=== PATIENT | male | born 1945 | race Two or more races ===

== ENCOUNTER 2018-03-21 18:30 | Inpatient (IN) | payer MEDICARE ==
[~2018-03-21] VITALS: Ht 154.9 cm; Wt 62.6 kg
[2018-03-21] MEDS ORDERED: METHYLPREDNISOLONE SOD SUCC 125 MG/2 ML VIAL IV STA (18:37)
[2018-03-21] MEDS ORDERED: IPRATROPIUM BROMIDE (0.02%) 0.5MG/2.5ML NEB HHN STA (18:37)
[2018-03-21] MEDS ORDERED: ALBUTEROL (0.083%) 2.5MG/3ML NEB HHN STA (18:37)
[2018-03-21] MEDS ORDERED: NITROGLYCERIN OINT 1GM/INCH UDPKT TD ONE (18:45)
[2018-03-21 19:37] LABS: BG BILEVEL POS AIRWAY PRESSURE 15/5; BG CARBOXYHEMOGLOBIN 0.5 % (0.5-1.5); BG FRACTION INSPIRED OXYGEN 75; BG HCO3 ACT 21.7 mmol/L (22.0-26.0); BG OXYHEMOGLOBIN 98.5 % (94.0-97.0); BG PCO2 33.3 mmHg (35.0-45.0); BG PH 7.431 (7.350-7.450); BG PO2 190.9 mmHg (75.0-100.0); BG SAMPLE SITE LEFT RADIAL; BG VENT MODE MASK - BIPAP; BG VENT RATE 12 set
[2018-03-21 20:10] LABS: HEMATOCRIT. 35.5 % (42.0-52.0); HEMOGLOBIN. 11.8 g/dL (14.0-18.0); MEAN CORPUSCULAR HEMOGLOBIN 29.9 pg (28.0-32.0); MEAN CORPUSCULAR VOLUME 89.9 fL (80.0-94.0); PLATELET 216 x1000/uL (130-400); RED BLOOD CELL COUNT 3.95 mill/uL (4.7-6.1); RED CELL DISTRIBUTION WIDTH 15.2 % (11.6-14.6)
[2018-03-21 20:13] LABS: CHLORIDE 101 mEq/L (98-107); INR 1.1; PARTIAL THROMBOPLASTIN TIME 25.1 sec (23.4-31.0); PROTHROMBIN TIME 10.7 sec (9.1-11.1)
[2018-03-21] MEDS ORDERED: LEVOFLOXACIN 500MG PREMIX 100 ML IV ONE (20:15)
[2018-03-21] MEDS ORDERED: VANCOMYCIN 1 G PREMIX 200 ML IV SCH (20:15)
[2018-03-21 20:18] LABS: PHOSPHORUS 5.9 mg/dL (2.5-4.9)
[2018-03-21 20:24] LABS: PLATELET ESTIMATE NORMAL
[2018-03-21] MEDS ORDERED: ASPIRIN 81MG TABLET PO ONE (21:15)
[2018-03-21] MEDS ORDERED: ENOXAPARIN 80MG/0.8ML SYR SUBCUT ONE (21:15)
[2018-03-22] VITALS (14 sets, daily range): BP systolic 132–171; BP diastolic 51–84
[2018-03-22] MEDS ORDERED: DEXTROSE 50% WATER 50ML SYRINGE IV PRN ×2 (02:00→22:15)
[2018-03-22] MEDS ORDERED: CLONIDINE 0.1MG TABLET PO PRN (02:00)
[2018-03-22] MEDS ORDERED: HEPARIN 25,000 UNITS PREMIX 500 ML IV SCH (02:30)
[2018-03-22] MEDS ORDERED: HEPARIN BOLUS PRN aPTT <30 IV (03:00)
[2018-03-22] MEDS ORDERED: HEPARIN BOLUS PRN aPTT 30-44 IV (03:00)
[2018-03-22] MEDS ORDERED: HEPARIN 60 UNITS/KG BOLUS IV NR (03:00)
[2018-03-22] MEDS: HEPARIN 25,000 UNITS PREMIX 500 ML IV SCH ×2 (03:45→18:37)
[2018-03-22] MEDS: BLOOD SUGAR DIAGNOSTIC STRIP TEST SCH ×4 (06:06→21:47)
[2018-03-22 08:40] LABS: CLARITY URINE CLOUDY (CLEAR); COLOR URINE YELLOW (YELLOW); KETONES URINE NEGATIVE (NEGATIVE); LEUKOCYTE ESTERASE URINE NEGATIVE (NEGATIVE); NITRITE URINE NEGATIVE (NEGATIVE); OCCULT BLOOD URINE TRACE (NEGATIVE); PROTEIN URINE 2+ (NEGATIVE); SPECIFIC GRAVITY URINE 1.015 (1.005-1.030); UROBILINOGEN URINE 0.2 E.U./dL (0.2-1.0)
[2018-03-22] MEDS: INSULIN LISPRO 100 UNITS/ML SUBCUT SCH ×3 (08:41→16:13)
[2018-03-22] MEDS ORDERED: ONDANSETRON HCL 4MG/2ML INJ IV PRN (11:15)
[2018-03-22] MEDS ORDERED: ENOXAPARIN 40MG/0.4ML SYR SUBCUT SCH (11:15)
[2018-03-22] MEDS ORDERED: IPRATROPIUM/ALBUTEROL 0.5-3(2.5)MG/3ML NEB INH PRN (11:15)
[2018-03-22 11:51] LABS: HEPATITIS B SURFACE ANTIGEN NEGATIVE
[2018-03-22 11:53] LABS: T4 FREE 1.18 ng/dL (0.76-1.46)
[2018-03-22 12:19] LABS: HEPATITIS B CORE AB IGM NEGATIVE
[2018-03-22 12:20] LABS: HEPATITIS A AB IGM NEGATIVE (NEGATIVE)
[2018-03-22] MEDS: CLOPIDOGREL 75MG TABLET PO SCH (16:01)
[2018-03-22] MEDS: ASPIRIN 81MG TABLET PO SCH (16:01)
[2018-03-22 16:31] LABS: CREATINE KINASE MB FRACTION 21.7 ng/mL (0.5-3.6)
[2018-03-22] MEDS ORDERED: INSULIN LISPRO 100 UNITS/ML SUBCUT SCH ×2 (22:19→22:30)
[2018-03-22] MEDS: ENOXAPARIN 80MG/0.8ML SYR SUBCUT SCH (22:34)
[2018-03-22 23:53] LABS: CREATINE KINASE MB FRACTION 15.4 ng/mL (0.5-3.6)
[2018-03-22] MEDS: INSULIN GLARGINE UD 100 UNITS/ML SYR SUBCUT SCH (23:55)
[2018-03-23] VITALS (12 sets, daily range): BP systolic 93–175; BP diastolic 40–99
[2018-03-23] MEDS: CLONIDINE 0.1MG TABLET PO PRN ×2 (02:02→08:14)
[2018-03-23] MEDS: BLOOD SUGAR DIAGNOSTIC STRIP TEST SCH ×4 (06:15→22:00)
[2018-03-23 06:22] LABS: BASOPHILS % 0.3 % (0.0-2.0); EOSINOPHILS % 0.1 % (0.0-5.0); HEMATOCRIT. 29.4 % (42.0-52.0); LYMPHOCYTES % 9.2 % (20.0-50.0); MEAN CORPUSCULAR HEMOGLOBIN 30.7 pg (28.0-32.0); MEAN CORPUSCULAR VOLUME 89.9 fL (80.0-94.0); MEAN PLATELET VOLUME 9.9 fl (7.4-10.4); MONOCYTES % 12.4 % (2.0-8.0); PLATELET 194 x1000/uL (130-400); RED BLOOD CELL COUNT 3.27 mill/uL (4.7-6.1)
[2018-03-23 06:44] LABS: CREATINE KINASE MB FRACTION 17.3 ng/mL (0.5-3.6)
[2018-03-23] MEDS ORDERED: INSULIN LISPRO 100 UNITS/ML SUBCUT SCH (07:20)
[2018-03-23] MEDS: INSULIN LISPRO 100 UNITS/ML SUBCUT SCH ×4 (07:20→21:00)
[2018-03-23] MEDS: CLOPIDOGREL 75MG TABLET PO SCH (08:14)
[2018-03-23] MEDS: ASPIRIN 81MG TABLET PO SCH (08:14)
[2018-03-23] MEDS ORDERED: LIDOCAINE HCL 1% 10 MG/ML 10ML VIAL ONE (08:42)
[2018-03-23 12:09] LABS: T4 FREE 1.3 ng/dL (0.76-1.46)
[2018-03-23 13:49] LABS: CREATINE KINASE MB FRACTION 17.6 ng/mL (0.5-3.6)
[2018-03-23] MEDS ORDERED: IOHEXOL-350 100 ML BOTTLE ONE (14:57)
[2018-03-23] MEDS ORDERED: LACTULOSE 20G/30ML UDC PO NR (16:00)
[2018-03-23] MEDS: PANTOPRAZOLE SODIUM 40 MG/VIAL IV SCH (17:05)
[2018-03-23] MEDS ORDERED: IPRATROPIUM/ALBUTEROL 0.5-3(2.5)MG/3ML NEB HHN PRN (17:45)
[2018-03-23] MEDS: IPRATROPIUM/ALBUTEROL 0.5-3(2.5)MG/3ML NEB HHN SCH ×2 (17:46→20:52)
[2018-03-23] MEDS: LEVOFLOXACIN 250MG PREMIX 50 ML IV SCH (21:44)
[2018-03-23] MEDS: ENOXAPARIN 80MG/0.8ML SYR SUBCUT SCH (21:59)
[2018-03-23] MEDS ORDERED: INSULIN GLARGINE UD 100 UNITS/ML SYR SUBCUT SCH (22:00)
[2018-03-23] MEDS: INSULIN GLARGINE UD 100 UNITS/ML SYR SUBCUT SCH (22:17)
[2018-03-24] VITALS (28 sets, daily range): BP systolic 96–154; BP diastolic 24–96
[2018-03-24] MEDS: IPRATROPIUM/ALBUTEROL 0.5-3(2.5)MG/3ML NEB HHN SCH ×3 (00:17→20:45)
[2018-03-24 00:34] LABS: CREATINE KINASE MB FRACTION 35.7 ng/mL (0.5-3.6)
[2018-03-24] MEDS: BLOOD SUGAR DIAGNOSTIC STRIP TEST SCH ×4 (06:53→21:11)
[2018-03-24] MEDS: INSULIN LISPRO 100 UNITS/ML SUBCUT SCH ×4 (06:56→22:31)
[2018-03-24 07:12] LABS: HEMATOCRIT. 26.7 % (42.0-52.0); MEAN CORPUSCULAR HEMOGLOBIN 30.6 pg (28.0-32.0); MEAN CORPUSCULAR VOLUME 90.2 fL (80.0-94.0); MEAN PLATELET VOLUME 10.2 fl (7.4-10.4); PLATELET 183 x1000/uL (130-400); RED BLOOD CELL COUNT 2.96 mill/uL (4.7-6.1); RED CELL DISTRIBUTION WIDTH 14.9 % (11.6-14.6)
[2018-03-24 07:30] LABS: CREATINE KINASE MB FRACTION 54.6 ng/mL (0.5-3.6)
[2018-03-24] MEDS ORDERED: NICARDIPINE 100MCG/ML 10ML VIAL (CATH LAB) IV ONE (08:00)
[2018-03-24] MEDS ORDERED: NITROGLYCERIN 50MCG/ML 10ML VIAL (CATH LAB) IV ONE (08:00)
[2018-03-24] MEDS ORDERED: LIDOCAINE HCL 1% 10 MG/ML 10ML VIAL ONE (08:00)
[2018-03-24] MEDS ORDERED: IODIXANOL 320MG/ML 100 ML BOTTLE IV ONE (08:00)
[2018-03-24] MEDS ORDERED: HYDRALAZINE 20MG/ML VIAL ONE (08:47)
[2018-03-24] MEDS ORDERED: NITROGLYCERIN 0.4MG TABLET SL SL ONE (08:47)
[2018-03-24 09:11] LABS: PLATELET ESTIMATE NORMAL
[2018-03-24] MEDS ORDERED: NITROGLYCERIN 50MG PREMIX 250ML IV ONE (09:19)
[2018-03-24] MEDS ORDERED: ATROPINE SULFATE 1MG/10ML SYR IV PRN (09:30)
[2018-03-24] MEDS ORDERED: ACETAMINOPHEN 325MG TABLET PO PRN (09:30)
[2018-03-24] MEDS: PANTOPRAZOLE SODIUM 40 MG/VIAL IV SCH (11:16)
[2018-03-24] MEDS: MORPHINE SULFATE 4 MG/ML CPJ (NOT FOR IM USE) IV PRN (11:16)
[2018-03-24] MEDS: ASPIRIN 81MG TABLET PO SCH (11:17)
[2018-03-24 15:59] LABS: BG BASE EXCESS 2.4 mmol/L (-2.0-2.0); BG CARBOXYHEMOGLOBIN 0.2 % (0.5-1.5); BG DEOXYHEMOGLOBIN 7.9 % (0.0-5.0); BG FRACTION INSPIRED OXYGEN 36; BG HCO3 ACT 25.7 mmol/L (22.0-26.0); BG METHEMOGLOBIN 0.3 % (0.0-1.5); BG OXYGEN SATURATION 92.1 % (92.0-98.5); BG OXYHEMOGLOBIN 91.6 % (94.0-97.0); BG PCO2 35.1 mmHg (35.0-45.0); BG PH 7.483 (7.350-7.450); BG PO2 65.7 mmHg (75.0-100.0); BG SAMPLE SITE LEFT BRACHIAL; BG TOTAL HEMOGLOBIN 10.6 g/dL (12.0-18.0); BG VENT MODE NASAL CANNULA
[2018-03-24] MEDS: [UNRECOGNIZED DRUG - OTHER] SUBCUT SCH (16:02)
[2018-03-24] MEDS: INSULIN GLARGINE UD 100 UNITS/ML SYR SUBCUT SCH (22:32)
[2018-03-25] VITALS (41 sets, daily range): BP systolic 76–180; BP diastolic 23–121
[2018-03-25] MEDS: IPRATROPIUM/ALBUTEROL 0.5-3(2.5)MG/3ML NEB HHN SCH ×6 (00:58→20:49)
[2018-03-25 05:45] LABS: BASOPHILS % 0.3 % (0.0-2.0); EOSINOPHILS % 0.6 % (0.0-5.0); HEMATOCRIT. 26.7 % (42.0-52.0); LYMPHOCYTES % 13.5 % (20.0-50.0); MEAN CORPUSCULAR HEMOGLOBIN 30.3 pg (28.0-32.0); MEAN CORPUSCULAR VOLUME 90.2 fL (80.0-94.0); MONOCYTES % 14.1 % (2.0-8.0); NEUTROPHILS % 71.5 % (40.0-76.0); PLATELET 159 x1000/uL (130-400); RED BLOOD CELL COUNT 2.96 mill/uL (4.7-6.1); RED CELL DISTRIBUTION WIDTH 15.1 % (11.6-14.6)
[2018-03-25] MEDS: BLOOD SUGAR DIAGNOSTIC STRIP TEST SCH ×4 (07:54→21:36)
[2018-03-25] MEDS: PANTOPRAZOLE SODIUM 40 MG/VIAL IV SCH (09:02)
[2018-03-25] MEDS: ASPIRIN 81MG TABLET PO SCH (09:03)
[2018-03-25] MEDS: INSULIN LISPRO 100 UNITS/ML SUBCUT SCH ×4 (09:05→21:39)
[2018-03-25] MEDS ORDERED: NITROGLYCERIN 50MG PREMIX 250 ML IV PRN (15:15)
[2018-03-25] MEDS: [UNRECOGNIZED DRUG - OTHER] SUBCUT SCH (16:48)
[2018-03-25] MEDS: LEVOFLOXACIN 250MG PREMIX 50 ML IV SCH (20:35)
[2018-03-25] MEDS: INSULIN GLARGINE UD 100 UNITS/ML SYR SUBCUT SCH (21:41)
[2018-03-26] VITALS (29 sets, daily range): BP systolic 74–189; BP diastolic 18–106
[2018-03-26] MEDS: IPRATROPIUM/ALBUTEROL 0.5-3(2.5)MG/3ML NEB HHN SCH ×5 (00:36→20:46)
[2018-03-26] MEDS: BLOOD SUGAR DIAGNOSTIC STRIP TEST SCH ×4 (07:50→22:00)
[2018-03-26] MEDS: INSULIN LISPRO 100 UNITS/ML SUBCUT SCH ×4 (08:20→22:12)
[2018-03-26 09:37] LABS: BASOPHILS % 0.4 % (0.0-2.0); EOSINOPHILS % 2.6 % (0.0-5.0); HEMATOCRIT. 36.7 % (42.0-52.0); HEMOGLOBIN. 12.4 g/dL (14.0-18.0); LYMPHOCYTES % 8.3 % (20.0-50.0); MEAN CORPUSCULAR HEMOGLOBIN 30.7 pg (28.0-32.0); MEAN CORPUSCULAR VOLUME 90.8 fL (80.0-94.0); MEAN PLATELET VOLUME 9.9 fl (7.4-10.4); MONOCYTES % 12.4 % (2.0-8.0); NEUTROPHILS % 76.3 % (40.0-76.0); PLATELET 164 x1000/uL (130-400); RED BLOOD CELL COUNT 4.04 mill/uL (4.7-6.1)
[2018-03-26 09:43] LABS: PHOSPHORUS 5.7 mg/dL (2.5-4.9)
[2018-03-26] MEDS: CLONIDINE 0.1MG TABLET PO PRN (09:45)
[2018-03-26] MEDS: PANTOPRAZOLE SODIUM 40 MG/VIAL IV SCH (09:46)
[2018-03-26] MEDS: HYDRALAZINE HCL 50MG TABLET PO SCH ×3 (10:00→18:00)
[2018-03-26] MEDS: ASPIRIN 81MG TABLET PO SCH (13:06)
[2018-03-26] MEDS ORDERED: ALBUMIN HUMAN 25GM/100ML (25%) IV PRN (16:30)
[2018-03-26] MEDS ORDERED: HEPARIN 25,000 UNITS PREMIX 500 ML IV SCH (16:45)
[2018-03-26] MEDS ORDERED: NITROGLYCERIN 0.4MG TABLET SL SL PRN (16:45)
[2018-03-26] MEDS ORDERED: ACETAMINOPHEN 325MG TABLET PO PRN (16:45)
[2018-03-26 17:57] LABS: PARTIAL THROMBOPLASTIN TIME 28.9 sec (23.4-31.0); PROTHROMBIN TIME 10.4 sec (9.1-11.1)
[2018-03-26] MEDS ORDERED: HEPARIN 5000 UNITS/ML VIAL IV NR (18:30)
[2018-03-26] MEDS ORDERED: HEPARIN 25,000 UNITS PREMIX 500 ML IV PRN (18:30)
[2018-03-26 20:51] LABS: PLT FUNCT COLLAGEN/EPINEPHRINE > 300 CT(SEC) (76-176)
[2018-03-26 20:52] LABS: PTLFUNC COLLAGEN/ADP 180 CT(SEC) (60-115)
[2018-03-26] MEDS ORDERED: ASCORBIC ACID 500 MG TABLET PO SCH (21:00)
[2018-03-26] MEDS ORDERED: DOCUSATE SODIUM 100MG CAPSULE PO SCH (21:00)
[2018-03-26] MEDS ORDERED: CHLORHEXIDINE GLUCONATE 4% EXTERNAL USE TOP SCH (21:00)
[2018-03-26] MEDS ORDERED: BISACODYL 10MG SUPP PR PRN (21:00)
[2018-03-26] MEDS: ALLOPURINOL 300 MG TABLET PO SCH (21:30)
[2018-03-26] MEDS: INSULIN GLARGINE UD 100 UNITS/ML SYR SUBCUT SCH (22:13)
[2018-03-26] MEDS ORDERED: HEPARIN 5000 UNITS/ML VIAL IV PRN ×2 (23:00)
[2018-03-26] MEDS: MORPHINE SULFATE 4 MG/ML CPJ (NOT FOR IM USE) IV PRN (23:50)
[2018-03-27] VITALS (54 sets, daily range): BP systolic 108–171; BP diastolic 21–107
[2018-03-27] MEDS: IPRATROPIUM/ALBUTEROL 0.5-3(2.5)MG/3ML NEB HHN SCH ×6 (00:38→20:45)
[2018-03-27] MEDS: HYDRALAZINE HCL 50MG TABLET PO SCH ×2 (02:00→04:30)
[2018-03-27] MEDS ORDERED: CHLORHEXIDINE GLUCONATE 4% EXTERNAL USE TOP SCH (04:00)
[2018-03-27] MEDS: ALLOPURINOL 300 MG TABLET PO SCH (04:30)
[2018-03-27] MEDS ORDERED: FENTANYL CITRATE/PF 50MCG/ML 5ML VIAL ONE (05:42)
[2018-03-27] MEDS ORDERED: MIDAZOLAM HCL 5 MG/ML VIAL ONE (05:43)
[2018-03-27] MEDS ORDERED: INSULIN REGULAR (DRIP) 100 UNITS in SODIUM CHLORIDE 0.9% 99 ML IV SCH (06:00)
[2018-03-27] MEDS ORDERED: EPINEPHRINE 4 MG in DEXT 5% WATER 246 ML IV SCH (06:00)
[2018-03-27] MEDS ORDERED: AMINOCAPROIC ACID 10,000 MG in SODIUM CHLORIDE 0.9% 460 ML IV SCH (06:00)
[2018-03-27] MEDS ORDERED: DOBUTAMINE 250MG PREMIX 250 ML IV SCH (06:00)
[2018-03-27] MEDS ORDERED: CEFAZOLIN 2000MG PREMIX 50 ML IV SCH (06:00)
[2018-03-27] MEDS ORDERED: NICARDIPINE 40MG/200ML PREMIX 200 ML IV SCH (06:00)
[2018-03-27] MEDS ORDERED: PAPAVERINE HCL 180MG in SODIUM CHLORIDE 0.9% 24ML IV SCH (06:00)
[2018-03-27] MEDS ORDERED: NOREPINEPHRINE 4 MG in DEXT 5% WATER 246 ML IV SCH (06:00)
[2018-03-27] MEDS ORDERED: DEL NIDO ELECTROLYTE-S(PH 7.4) 1,000 ML IV SCH ×2 (06:00)
[2018-03-27 06:10] LABS: HEMATOCRIT. 38.7 % (42.0-52.0); HEMOGLOBIN. 13.2 g/dL (14.0-18.0); MEAN CORPUSCULAR HEMOGLOBIN 30.9 pg (28.0-32.0); MEAN CORPUSCULAR VOLUME 90.4 fL (80.0-94.0); MEAN PLATELET VOLUME 9.7 fl (7.4-10.4); PLATELET 152 x1000/uL (130-400); RED BLOOD CELL COUNT 4.28 mill/uL (4.7-6.1); RED CELL DISTRIBUTION WIDTH 14.4 % (11.6-14.6)
[2018-03-27 06:20] LABS: CHLORIDE 99 mEq/L (98-107)
[2018-03-27] MEDS ORDERED: HEPARIN 1000 UNITS/ML 10ML ONE ×3 (06:42→08:01)
[2018-03-27] MEDS ORDERED: BACITRACIN ZINC 15GM TUBE TOP ONE (06:42)
[2018-03-27] MEDS ORDERED: GELATIN SPONGE,COMPRESSED SZ 100 ONE (07:11)
[2018-03-27] MEDS ORDERED: BACITRACIN 50,000 UNITS/VIAL ONE (07:11)
[2018-03-27] MEDS ORDERED: THROMBIN (BOVINE) 5000 UNITS/VIAL TOP ONE ×2 (07:11→10:29)
[2018-03-27] MEDS ORDERED: METHYLENE BLUE 50 MG/10 ML AMP IV ONE (07:11)
[2018-03-27] MEDS ORDERED: NORMAL SALINE 0.9% 10 ML SYR ONE (07:11)
[2018-03-27] MEDS: INSULIN LISPRO 100 UNITS/ML SUBCUT SCH (07:40)
[2018-03-27] MEDS ORDERED: ALBUMIN HUMAN 25GM/100ML (25%) IV ONE (07:44)
[2018-03-27] MEDS ORDERED: AMIODARONE HCL 50MG/ML 3ML VIAL IV ONE (07:44)
[2018-03-27] MEDS ORDERED: PHENYLEPHRINE HCL 10 MG/ML 1ML (IV VIAL) IV ONE (07:44)
[2018-03-27] MEDS ORDERED: MAGNESIUM SULFATE 5GM/10ML VIAL IV ONE (07:44)
[2018-03-27] MEDS ORDERED: AMINOCAPROIC ACID 250 MG/ML 20ML VIAL ONE (07:44)
[2018-03-27] MEDS ORDERED: CALCIUM CHLORIDE 1GM/10ML SYR IV ONE (07:45)
[2018-03-27] MEDS ORDERED: SODIUM BICARBONATE 8.4% 1 MEQ/ML 50ML SYR IV ONE ×4 (07:45→12:51)
[2018-03-27] MEDS ORDERED: LIDOCAINE HCL 2% 5ML SYRINGE IV ONE (07:45)
[2018-03-27 07:50] LABS: INR 1.1; PROTHROMBIN TIME 11.4 sec (9.1-11.1)
[2018-03-27] MEDS ORDERED: MANNITOL 20% 500 ML IV ONE (08:38)
[2018-03-27] MEDS ORDERED: ALBUMIN HUMAN 12.5G/250ML (5%) IV ONE ×2 (09:36→13:07)
[2018-03-27] MEDS ORDERED: ALBUMIN HUMAN 12.5GM/50ML (25%) IV ONE (13:07)
[2018-03-27 13:14] LABS: PLATELET ESTIMATE NORMAL
[2018-03-27] MEDS ORDERED: NEOSTIGMINE METHYLSULFATE 1MG/ML 10 ML VIAL ONE ×2 (13:53→13:59)
[2018-03-27] MEDS ORDERED: GLYCOPYRROLATE 0.2 MG/ML 2ML VIAL ONE (14:01)
[2018-03-27] MEDS ORDERED: SODIUM CHLORIDE 0.9% 500 ML IV PRN (14:28)
[2018-03-27] MEDS ORDERED: NOREPINEPHRINE 4 MG in DEXT 5% WATER 250 ML IV SCH (14:28)
[2018-03-27] MEDS ORDERED: DEXT 5%/0.45% NACL 1000ML 1,000 ML IV SCH (14:28)
[2018-03-27] MEDS ORDERED: ALBUMIN HUMAN 12.5G/250ML (5%) IV PRN (14:30)
[2018-03-27] MEDS ORDERED: MAGNESIUM 1 G PREMIX 100 ML IV PRN (14:30)
[2018-03-27] MEDS ORDERED: ACETAMINOPHEN 325MG TABLET PO PRN (14:30)
[2018-03-27] MEDS ORDERED: MORPHINE SULFATE 4 MG/ML CPJ (NOT FOR IM USE) IV PRN (14:30)
[2018-03-27] MEDS ORDERED: OXYCODONE HCL/ACETAMINOPHEN 5/325MG TABLET PO PRN (14:30)
[2018-03-27] MEDS ORDERED: CEFAZOLIN 1000MG PREMIX 50 ML IV SCH (14:30)
[2018-03-27 14:47] LABS: BG BASE EXCESS -7.5 mmol/L (-2.0-2.0); BG CARBOXYHEMOGLOBIN 0.9 % (0.5-1.5); BG DEOXYHEMOGLOBIN 1.7 % (0.0-5.0); BG HCO3 ACT 20.5 mmol/L (22.0-26.0); BG METHEMOGLOBIN 0.3 % (0.0-1.5); BG OXYGEN SATURATION 98.3 % (92.0-98.5); BG OXYHEMOGLOBIN 97.1 % (94.0-97.0); BG PCO2 58.7 mmHg (35.0-45.0); BG PH 7.161 (7.350-7.450); BG PO2 197.6 mmHg (75.0-100.0); BG SAMPLE SITE A-LINE; BG TOTAL HEMOGLOBIN 5.9 g/dL (12.0-18.0); BG VENT MODE VENT - A/C
[2018-03-27] MEDS: DEXT 5%/0.45% NACL 1000ML 1,000 ML IV SCH ×2 (15:00→16:00)
[2018-03-27 15:05] LABS: MEAN CORPUSCULAR HEMOGLOBIN 30.8 pg (28.0-32.0); MEAN CORPUSCULAR VOLUME 92.8 fL (80.0-94.0); MEAN PLATELET VOLUME 9.3 fl (7.4-10.4); PLATELET 63 x1000/uL (130-400); RED BLOOD CELL COUNT 2.23 mill/uL (4.7-6.1); RED CELL DISTRIBUTION WIDTH 14.8 % (11.6-14.6)
[2018-03-27 15:09] LABS: HEMATOCRIT. 20.7 % (42.0-52.0); HEMOGLOBIN. 6.9 g/dL (14.0-18.0)
[2018-03-27 15:10] LABS: INR 1.9; PROTHROMBIN TIME 18.7 sec (9.1-11.1)
[2018-03-27 15:36] LABS: BG BASE EXCESS -0.1 mmol/L (-2.0-2.0); BG CARBOXYHEMOGLOBIN 1.2 % (0.5-1.5); BG DEOXYHEMOGLOBIN 3.8 % (0.0-5.0); BG FRACTION INSPIRED OXYGEN 50; BG HCO3 ACT 25.3 mmol/L (22.0-26.0); BG METHEMOGLOBIN 0.2 % (0.0-1.5); BG OXYGEN SATURATION 96.1 % (92.0-98.5); BG OXYHEMOGLOBIN 94.8 % (94.0-97.0); BG PCO2 45.5 mmHg (35.0-45.0); BG PH 7.363 (7.350-7.450); BG PO2 97.7 mmHg (75.0-100.0); BG PRESSURE SUPPORT 12; BG SAMPLE SITE A-LINE; BG TOTAL HEMOGLOBIN 6.4 g/dL (12.0-18.0); BG VENT MODE VENT - CPAP
[2018-03-27 15:54] LABS: PLATELET ESTIMATE DECREASED
[2018-03-27] MEDS ORDERED: SODIUM BICARBONATE 8.4% 1 MEQ/ML 50ML SYR IV NR (16:00)
[2018-03-27] MEDS ORDERED: MAGNESIUM HYDROXIDE 400MG/5ML 30ML UDC PO SCH (16:00)
[2018-03-27] MEDS ORDERED: MAGNESIUM/ALUMINUM HYDROXIDE/SIMETHICONE 30ML UDC NG SCH (16:00)
[2018-03-27] MEDS ORDERED: IPRATROPIUM/ALBUTEROL 0.5-3(2.5)MG/3ML NEB HHN SCH (16:00)
[2018-03-27] MEDS: DOCUSATE SODIUM 100MG CAPSULE PO SCH (17:00)
[2018-03-27] MEDS: BLOOD SUGAR DIAGNOSTIC STRIP TEST SCH ×4 (20:00→23:00)
[2018-03-27] MEDS: INSULIN REGULAR (DRIP) 100 UNITS in SODIUM CHLORIDE 0.9% 100 ML IV SCH (20:44)
[2018-03-27] MEDS: LEVOFLOXACIN 250MG PREMIX 50 ML IV SCH (21:18)
[2018-03-27 21:34] LABS: BG CARBOXYHEMOGLOBIN 0.3 % (0.5-1.5); BG FRACTION INSPIRED OXYGEN 40; BG HCO3 ACT 22.7 mmol/L (22.0-26.0); BG METHEMOGLOBIN 0.3 % (0.0-1.5); BG OXYHEMOGLOBIN 95.4 % (94.0-97.0); BG PCO2 34.2 mmHg (35.0-45.0); BG PO2 82.1 mmHg (75.0-100.0); BG SAMPLE SITE A-LINE; BG TOTAL HEMOGLOBIN 11.1 g/dL (12.0-18.0); BG VENT MODE VENT - CPAP
[2018-03-27 21:36] LABS: HEMATOCRIT. 30.6 % (42.0-52.0); HEMOGLOBIN. 10.4 g/dL (14.0-18.0); MEAN CORPUSCULAR HEMOGLOBIN 29.4 pg (28.0-32.0); MEAN CORPUSCULAR VOLUME 86.4 fL (80.0-94.0); MEAN PLATELET VOLUME 9.5 fl (7.4-10.4); PLATELET 75 x1000/uL (130-400); RED BLOOD CELL COUNT 3.54 mill/uL (4.7-6.1); RED CELL DISTRIBUTION WIDTH 17.1 % (11.6-14.6)
[2018-03-27] MEDS ORDERED: KETOROLAC 15MG/ML VIAL IV NR (22:00)
[2018-03-27 22:40] LABS: PLATELET ESTIMATE DECREASED
[2018-03-28] VITALS (72 sets, daily range): BP systolic -1–168; BP diastolic -1–73
[2018-03-28] MEDS: IPRATROPIUM/ALBUTEROL 0.5-3(2.5)MG/3ML NEB HHN SCH ×3 (00:25→20:20)
[2018-03-28] MEDS: BLOOD SUGAR DIAGNOSTIC STRIP TEST SCH ×24 (01:00→23:00)
[2018-03-28] MEDS ORDERED: CEFAZOLIN 500MG in DEXTROSE 5% WATER 50ML IV SCH (06:00)
[2018-03-28 06:26] LABS: HEMOGLOBIN. 10.1 g/dL (14.0-18.0); MEAN CORPUSCULAR HEMOGLOBIN 29.8 pg (28.0-32.0); MEAN CORPUSCULAR VOLUME 85.8 fL (80.0-94.0); MEAN PLATELET VOLUME 10.1 fl (7.4-10.4); PLATELET 78 x1000/uL (130-400); RED BLOOD CELL COUNT 3.38 mill/uL (4.7-6.1); RED CELL DISTRIBUTION WIDTH 17.4 % (11.6-14.6)
[2018-03-28] MEDS: ONDANSETRON HCL 4MG/2ML INJ IV PRN ×2 (07:09→18:27)
[2018-03-28 08:31] LABS: PLATELET ESTIMATE DECREASED
[2018-03-28] MEDS: BACITRACIN ZINC 15GM TUBE TOP SCH ×2 (08:52→16:12)
[2018-03-28] MEDS: DOCUSATE SODIUM 100MG CAPSULE PO SCH ×2 (08:52→18:21)
[2018-03-28] MEDS: FAMOTIDINE 20MG/2ML VIAL IV SCH (08:52)
[2018-03-28] MEDS: OXYCODONE HCL/ACETAMINOPHEN 5/325MG TABLET PO PRN (16:11)
[2018-03-28] MEDS: INSULIN REGULAR (DRIP) 100 UNITS in SODIUM CHLORIDE 0.9% 100 ML IV SCH (22:03)
[2018-03-29] VITALS (55 sets, daily range): BP systolic 60–160; BP diastolic 16–106
[2018-03-29] MEDS: IPRATROPIUM/ALBUTEROL 0.5-3(2.5)MG/3ML NEB HHN SCH ×8 (00:27→23:54)
[2018-03-29] MEDS: BLOOD SUGAR DIAGNOSTIC STRIP TEST SCH ×19 (01:00→22:21)
[2018-03-29] MEDS: ONDANSETRON HCL 4MG/2ML INJ IV PRN ×2 (03:02→09:43)
[2018-03-29] MEDS: OXYCODONE HCL/ACETAMINOPHEN 5/325MG TABLET PO PRN (04:03)
[2018-03-29 06:24] LABS: HEMATOCRIT. 30.2 % (42.0-52.0); HEMOGLOBIN. 10.1 g/dL (14.0-18.0); MEAN CORPUSCULAR HEMOGLOBIN 29.5 pg (28.0-32.0); MEAN CORPUSCULAR VOLUME 88.2 fL (80.0-94.0); MEAN PLATELET VOLUME 10.8 fl (7.4-10.4); PLATELET 86 x1000/uL (130-400); RED BLOOD CELL COUNT 3.42 mill/uL (4.7-6.1); RED CELL DISTRIBUTION WIDTH 18.2 % (11.6-14.6)
[2018-03-29] MEDS: BACITRACIN ZINC 15GM TUBE TOP SCH ×2 (08:54→17:39)
[2018-03-29] MEDS: FAMOTIDINE 20MG/2ML VIAL IV SCH (08:54)
[2018-03-29] MEDS: DOCUSATE SODIUM 100MG CAPSULE PO SCH ×2 (08:55→17:00)
[2018-03-29 13:38] LABS: PLATELET ESTIMATE DECREASED
[2018-03-29] MEDS: DEXT 5%/0.45% NACL 1000ML 1,000 ML IV SCH (19:35)
[2018-03-29] MEDS: LEVOFLOXACIN 250MG PREMIX 50 ML IV SCH (20:26)
[2018-03-29] MEDS: ASPIRIN 81MG TABLET PO SCH (21:26)
[2018-03-30] VITALS (68 sets, daily range): BP systolic 65–188; BP diastolic 15–129
[2018-03-30] MEDS: BLOOD SUGAR DIAGNOSTIC STRIP TEST SCH ×14 (00:10→21:01)
[2018-03-30] MEDS: IPRATROPIUM/ALBUTEROL 0.5-3(2.5)MG/3ML NEB HHN SCH ×3 (04:29→21:07)
[2018-03-30 05:44] LABS: HEMATOCRIT. 29.9 % (42.0-52.0); HEMOGLOBIN. 9.9 g/dL (14.0-18.0); MEAN CORPUSCULAR HEMOGLOBIN 29.4 pg (28.0-32.0); MEAN CORPUSCULAR VOLUME 88.6 fL (80.0-94.0); MEAN PLATELET VOLUME 10.4 fl (7.4-10.4); PLATELET 96 x1000/uL (130-400); RED BLOOD CELL COUNT 3.37 mill/uL (4.7-6.1); RED CELL DISTRIBUTION WIDTH 17.3 % (11.6-14.6)
[2018-03-30] MEDS ORDERED: DEXTROSE 50% WATER 50ML SYRINGE IV PRN (08:15)
[2018-03-30] MEDS: INSULIN LISPRO 100 UNITS/ML SUBCUT SCH ×4 (08:20→21:22)
[2018-03-30] MEDS: CLOPIDOGREL 75MG TABLET PO SCH (09:01)
[2018-03-30] MEDS: FAMOTIDINE 20MG/2ML VIAL IV SCH (09:01)
[2018-03-30] MEDS: DOCUSATE SODIUM 100MG CAPSULE PO SCH ×2 (09:01→17:36)
[2018-03-30] MEDS: BACITRACIN ZINC 15GM TUBE TOP SCH ×2 (09:02→21:22)
[2018-03-30] MEDS: ASPIRIN 81MG TABLET PO SCH (09:02)
[2018-03-30] MEDS: INSULIN GLARGINE UD 100 UNITS/ML SYR SUBCUT SCH (09:04)
[2018-03-30] MEDS: ONDANSETRON HCL 4MG/2ML INJ IV PRN (09:56)
[2018-03-30] MEDS: METOPROLOL TARTRATE 25MG TABLET PO SCH (10:00)
[2018-03-30] MEDS: MAGNESIUM HYDROXIDE 400MG/5ML 30ML UDC PO SCH ×4 (10:40→21:20)
[2018-03-30 12:44] LABS: NUCLEATED RED BLOOD CELLS 2 /100 WBC
[2018-03-30 12:45] LABS: PLATELET ESTIMATE SLIGHTLY DECREASED
[2018-03-30] MEDS ORDERED: HYDRALAZINE HCL 50MG TABLET PO SCH (18:00)
[2018-03-30] MEDS: ATORVASTATIN CALCIUM 20MG TABLET PO SCH (21:20)
[2018-03-31] VITALS (12 sets, daily range): BP systolic 93–177; BP diastolic 16–99
[2018-03-31] MEDS: IPRATROPIUM/ALBUTEROL 0.5-3(2.5)MG/3ML NEB HHN SCH ×4 (00:25→20:30)
[2018-03-31] MEDS: MAGNESIUM HYDROXIDE 400MG/5ML 30ML UDC PO SCH ×5 (02:00→18:39)
[2018-03-31] MEDS: BLOOD SUGAR DIAGNOSTIC STRIP TEST SCH ×4 (06:36→20:30)
[2018-03-31 07:08] LABS: HEMATOCRIT. 28.4 % (42.0-52.0); HEMOGLOBIN. 9.5 g/dL (14.0-18.0); MEAN CORPUSCULAR HEMOGLOBIN 29.5 pg (28.0-32.0); MEAN CORPUSCULAR VOLUME 88.6 fL (80.0-94.0); MEAN PLATELET VOLUME 9.8 fl (7.4-10.4); PLATELET 124 x1000/uL (130-400); RED CELL DISTRIBUTION WIDTH 16.8 % (11.6-14.6)
[2018-03-31] MEDS: METOPROLOL TARTRATE 25MG TABLET PO SCH (09:00)
[2018-03-31] MEDS: INSULIN LISPRO 100 UNITS/ML SUBCUT SCH ×4 (09:13→20:50)
[2018-03-31] MEDS: BACITRACIN ZINC 15GM TUBE TOP SCH ×2 (09:14→20:49)
[2018-03-31] MEDS: DOCUSATE SODIUM 100MG CAPSULE PO SCH ×2 (09:14→18:39)
[2018-03-31] MEDS: CLOPIDOGREL 75MG TABLET PO SCH (09:14)
[2018-03-31] MEDS: ASPIRIN 81MG TABLET PO SCH (09:14)
[2018-03-31] MEDS: FAMOTIDINE 20MG TABLET PO SCH (09:14)
[2018-03-31] MEDS: INSULIN GLARGINE UD 100 UNITS/ML SYR SUBCUT SCH (10:56)
[2018-03-31 13:52] LABS: PLATELET ESTIMATE SLIGHTLY DECREASED
[2018-03-31] MEDS: ATORVASTATIN CALCIUM 20MG TABLET PO SCH (20:49)
[2018-04-01] VITALS (12 sets, daily range): BP systolic 118–168; BP diastolic 17–91
[2018-04-01] MEDS: IPRATROPIUM/ALBUTEROL 0.5-3(2.5)MG/3ML NEB HHN SCH ×5 (01:46→20:57)
[2018-04-01 06:11] LABS: HEMATOCRIT. 27.3 % (42.0-52.0); HEMOGLOBIN. 9.3 g/dL (14.0-18.0); MEAN CORPUSCULAR HEMOGLOBIN 30.3 pg (28.0-32.0); MEAN CORPUSCULAR VOLUME 88.7 fL (80.0-94.0); MEAN PLATELET VOLUME 9.3 fl (7.4-10.4); PLATELET 147 x1000/uL (130-400); RED BLOOD CELL COUNT 3.07 mill/uL (4.7-6.1); RED CELL DISTRIBUTION WIDTH 17.5 % (11.6-14.6)
[2018-04-01] MEDS: BLOOD SUGAR DIAGNOSTIC STRIP TEST SCH ×4 (06:58→21:19)
[2018-04-01] MEDS: INSULIN LISPRO 100 UNITS/ML SUBCUT SCH ×4 (08:34→21:00)
[2018-04-01] MEDS: FAMOTIDINE 20MG TABLET PO SCH (08:35)
[2018-04-01] MEDS: ASPIRIN 81MG TABLET PO SCH (08:35)
[2018-04-01] MEDS: DOCUSATE SODIUM 100MG CAPSULE PO SCH ×2 (08:35→17:00)
[2018-04-01] MEDS: CLOPIDOGREL 75MG TABLET PO SCH (08:35)
[2018-04-01] MEDS: BACITRACIN ZINC 15GM TUBE TOP SCH ×2 (08:38→21:20)
[2018-04-01] MEDS: METOPROLOL TARTRATE 25MG TABLET PO SCH (08:38)
[2018-04-01 09:44] LABS: PLATELET ESTIMATE NORMAL
[2018-04-01] MEDS: INSULIN GLARGINE UD 100 UNITS/ML SYR SUBCUT SCH (10:34)
[2018-04-01] MEDS: ATORVASTATIN CALCIUM 20MG TABLET PO SCH (21:19)
[2018-04-02] VITALS (10 sets, daily range): BP systolic 105–157; BP diastolic 38–84
[2018-04-02] MEDS: IPRATROPIUM/ALBUTEROL 0.5-3(2.5)MG/3ML NEB HHN SCH ×5 (00:44→16:23)
[2018-04-02] MEDS: INSULIN LISPRO 100 UNITS/ML SUBCUT SCH ×3 (05:58→17:20)
[2018-04-02] MEDS: BLOOD SUGAR DIAGNOSTIC STRIP TEST SCH ×3 (05:58→17:48)
[2018-04-02 07:15] LABS: BASOPHILS % 0.5 % (0.0-2.0); EOSINOPHILS % 2.4 % (0.0-5.0); HEMATOCRIT. 27.5 % (42.0-52.0); HEMOGLOBIN. 9.3 g/dL (14.0-18.0); LYMPHOCYTES % 7.4 % (20.0-50.0); MEAN CORPUSCULAR HEMOGLOBIN 30.1 pg (28.0-32.0); MEAN CORPUSCULAR VOLUME 88.8 fL (80.0-94.0); MEAN PLATELET VOLUME 9.3 fl (7.4-10.4); MONOCYTES % 13.8 % (2.0-8.0); NEUTROPHILS % 75.9 % (40.0-76.0); PLATELET 161 x1000/uL (130-400); RED CELL DISTRIBUTION WIDTH 16.9 % (11.6-14.6)
[2018-04-02] MEDS: INSULIN GLARGINE UD 100 UNITS/ML SYR SUBCUT SCH (09:42)
[2018-04-02] MEDS: CLOPIDOGREL 75MG TABLET PO SCH (09:42)
[2018-04-02] MEDS: ASPIRIN 81MG TABLET PO SCH (09:42)
[2018-04-02] MEDS: FAMOTIDINE 20MG TABLET PO SCH (09:42)
[2018-04-02] MEDS: DOCUSATE SODIUM 100MG CAPSULE PO SCH ×2 (09:42→17:00)
[2018-04-02] MEDS: METOPROLOL TARTRATE 25MG TABLET PO SCH (09:46)
[2018-04-02] MEDS: BACITRACIN ZINC 15GM TUBE TOP SCH (09:46)
== END 2018-04-02 18:20 | DRG 233 ==
LOC: ER 18:30 → 3WST 19:34 → EDBEDREQ 19:35 → EDBEDREQTM 19:35 → ENRESERV 22:11 → CVICU 03-24 10:27 → 3WST 03-30 18:15
PROVIDERS: ADMIT Hospitalist; ATTEND Hospitalist
PROC: 0HDNXZZ Extraction of Left Foot Skin, External Approach (ICD-10-PCS; principal; 2018-03-22)
PROC: 0BH17EZ Insertion of Endotracheal Airway into Trachea, Via Natural or Artificial Opening (ICD-10-PCS; 2018-03-22)
PROC: 021209W Bypass Coronary Artery, Three Arteries from Aorta with Autologous Venous Tissue, Open Approach (ICD-10-PCS; 2018-03-22)
PROC: 0W9B30Z Drainage of Left Pleural Cavity with Drainage Device, Percutaneous Approach (ICD-10-PCS; 2018-03-22)
PROC: 5A1D70Z Performance of Urinary Filtration, Intermittent, Less than 6 Hours Per Day (ICD-10-PCS; 2018-03-22)
PROC: 5A09357 Assistance with Respiratory Ventilation, Less than 24 Consecutive Hours, Continuous Positive Airway Pressure (ICD-10-PCS; 2018-03-22)
PROC: 5A1D70Z Performance of Urinary Filtration, Intermittent, Less than 6 Hours Per Day (ICD-10-PCS; 2018-03-23)
PROC: B54NZZA Ultrasonography of Left Upper Extremity Veins, Guidance (ICD-10-PCS; 2018-03-23)
PROC: 05HY33Z Insertion of Infusion Device into Upper Vein, Percutaneous Approach (ICD-10-PCS; 2018-03-23)
PROC: 4A023N7 Measurement of Cardiac Sampling and Pressure, Left Heart, Percutaneous Approach (ICD-10-PCS; 2018-03-24)
PROC: B2111ZZ Fluoroscopy of Multiple Coronary Arteries using Low Osmolar Contrast (ICD-10-PCS; 2018-03-24)
PROC: 30233N1 Transfusion of Nonautologous Red Blood Cells into Peripheral Vein, Percutaneous Approach (ICD-10-PCS; 2018-03-25)
PROC: 5A1D70Z Performance of Urinary Filtration, Intermittent, Less than 6 Hours Per Day (ICD-10-PCS; 2018-03-25)
PROC: 5A1D70Z Performance of Urinary Filtration, Intermittent, Less than 6 Hours Per Day (ICD-10-PCS; 2018-03-26)
PROC: 03B10ZZ Excision of Left Internal Mammary Artery, Open Approach (ICD-10-PCS; 2018-03-27)
PROC: 02100Z9 Bypass Coronary Artery, One Artery from Left Internal Mammary, Open Approach (ICD-10-PCS; 2018-03-27)
PROC: 021109W Bypass Coronary Artery, Two Arteries from Aorta with Autologous Venous Tissue, Open Approach (ICD-10-PCS; 2018-03-27)
PROC: 06BP0ZZ Excision of Right Saphenous Vein, Open Approach (ICD-10-PCS; 2018-03-27)
PROC: 5A1221Z Performance of Cardiac Output, Continuous (ICD-10-PCS; 2018-03-27)
PROC: B24BZZ4 Ultrasonography of Heart with Aorta, Transesophageal (ICD-10-PCS; 2018-03-27)
PROC: 5A1D70Z Performance of Urinary Filtration, Intermittent, Less than 6 Hours Per Day (ICD-10-PCS; 2018-03-27)
PROC: B246ZZ4 Ultrasonography of Right and Left Heart, Transesophageal (ICD-10-PCS; 2018-03-27)
PROC: 5A1D70Z Performance of Urinary Filtration, Intermittent, Less than 6 Hours Per Day (ICD-10-PCS; 2018-03-28)
PROC: 5A1D70Z Performance of Urinary Filtration, Intermittent, Less than 6 Hours Per Day (ICD-10-PCS; 2018-03-29)
PROC: 5A1D70Z Performance of Urinary Filtration, Intermittent, Less than 6 Hours Per Day (ICD-10-PCS; 2018-03-30)
PROC: 5A1D70Z Performance of Urinary Filtration, Intermittent, Less than 6 Hours Per Day (ICD-10-PCS; 2018-04-01)
PROC: 5A1D70Z Performance of Urinary Filtration, Intermittent, Less than 6 Hours Per Day (ICD-10-PCS; 2018-04-02)
DX: I21.4 Non-ST elevation (NSTEMI) myocardial infarction (principal); I50.33 Acute on chronic diastolic (congestive) heart failure; N18.6 End stage renal disease; J18.9 Pneumonia, unspecified organism; G93.40 Encephalopathy, unspecified; J96.01 Acute respiratory failure with hypoxia; I13.2 Hypertensive heart and chronic kidney disease with heart failure and with stage 5 chronic kidney disease, or end stage renal disease; E44.0 Moderate protein-calorie malnutrition; R65.10 Systemic inflammatory response syndrome (SIRS) of non-infectious origin without acute organ dysfunction; D68.9 Coagulation defect, unspecified; N17.9 Acute kidney failure, unspecified; M86.9 Osteomyelitis, unspecified; Z99.2 Dependence on renal dialysis; E11.22 Type 2 diabetes mellitus with diabetic chronic kidney disease; E11.621 Type 2 diabetes mellitus with foot ulcer; L97.529 Non-pressure chronic ulcer of other part of left foot with unspecified severity; E11.42 Type 2 diabetes mellitus with diabetic polyneuropathy; D64.9 Anemia, unspecified; F10.10 Alcohol abuse, uncomplicated; Z95.0 Presence of cardiac pacemaker; I49.5 Sick sinus syndrome; I16.0 Hypertensive urgency; D69.6 Thrombocytopenia, unspecified; E78.5 Hyperlipidemia, unspecified; I25.10 Atherosclerotic heart disease of native coronary artery without angina pectoris; I25.2 Old myocardial infarction; I27.20 Pulmonary hypertension, unspecified; Z91.15 Patient's noncompliance with renal dialysis; Z89.412 Acquired absence of left great toe; Z91.19 Patient's noncompliance with other medical treatment and regimen; Z87.891 Personal history of nicotine dependence
CPT/HCPCS: 36415; 36569; 36600; 70450; 71045; 71275; 73630; 76937; 78582; 80048; 80053; 80061; 81003; 82375; 82550; 82553; 82805; 82962; 83036; 83605; 83735; 83880; 84100; 84132; 84439; 84443; 84484; 85025; 85379; 85576; 85610; 85651; 85730; 86140; 86705; 86709; 86803; 86850; 86900; 86920; 87040; 87086; 87340; 92523; 92610; 93005; 93306; 93458; 93880; 93923; 93970; 94002; 94640; 94644; 94660; 96365; 96368; 96372; 96375; 97110; 97116; 97162; 97164; 97166; 97530; 97535; 99291; A4216; A9558; C1725; C1726; C1760; C1769; C1887; C1893; C9113; J0282; J0360; J0690; J1250; J1644; J1650; J1815; J1885; J1956; J2250; J2270; J2370; J2405; J2440; J2710; J2930; J3010; J3370; J3475; J3490; J7030; J7040; J7050; J7060; J7611; J7620; P9016; P9041; P9047; Q9967; Q9968